=== PATIENT | female | born 1955 | race Caucasian/White ===

== ENCOUNTER 2023-01-17 10:14 | Outpatient (OUT) | payer MEDICARE, OTHER, SELFPAY ==
--- NOTE | 2023-01-17 10:20 | ECG_ITS ---
[facility] Test Date: 2023-01-17 Pat Name: Chelsea Johnson Department: Room: - Gender: Female Enterprise Resource Planning Consultant: : 1955 Requested By: JIMY JACKMAN Order Number: [id number] Reading MD: NUSRAT PAREKH Measurements Intervals [place] Rate: 76 P: 26 WY: 154 QRS: 4 QRSD: 94 T: 29 QT: 383 QTc: 431 Interpretive Statements SINUS RHYTHM MINIMAL VOLTAGE CRITERIA FOR LVH, CONSIDER NORMAL VARIANT [MEETS CRITERIA IN ONE OF: R(aVL), S(V1), R(V5), R(V5/V6)+S(V1)] POSSIBLE INFERIOR MYOCARDIAL INFARCTION [30 ms Q WAVE IN II/aVF], PROBABLY OLD No previous ECG available for comparison Electronically Signed On 01-18-2023 7:17:06 EDT by NUSRAT PAREKH
--- NOTE | 2023-01-17 11:32 | PM.PRESUREVA ---
History of Present Illness History of Present Illness Chief complaint: PAT visit Narrative: Patient presents for preadmission testing. The patient reports a long history of pain and callus to her 5th metatarsal left foot. She states the pain is worse after she has been walking long distances. She has had the callus removed several times which does help with her discomfort. She states she recently went on a vacation with a lot of walking, and she felt better when she stayed on even ground. She denies numbness, tingling, weakness, or any other complaints. Review of Systems ROS Narrative REVIEW OF SYSTEMS: Negative except as stated in HPI, ten or more systems reviewed. Constitutional: No fever , chills, weakness ENT: No sore throat or epistaxis Cardiovascular: No edema, chest pain, palpitations, or activity intolerance Respiratory: No shortness of breath, cough, or wheezing Musculoskeletal: No joint pain or swelling Gastrointestinal: No abdominal pain, constipation, diarrhea, or vomiting Genitourinary: No dysuria or hematuria Neurological: No numbness, tingling, weakness, or headache Psychiatric: No mood changes PFSH PFS Medical History (Updated 01/17/23 @ 11:24 by Cara Butts NP) (2010) Surgical History (Updated 01/17/23 @ 11:24 by Cara Butts NP) (11/27/18) Family History (Updated 01/17/23 @ 10:53 by Cara Butts NP) Other Atrial fibrillation Bladder cancer Family history of colon cancer Family history of kidney cancer Family history of lung cancer Family history of thyroid cancer Kidney disease Social History (Updated 01/17/23 @ 10:49 by Cara Butts NP) Within the past year, how often did you have a drink containing alcohol: 2-3 times a week Smoking status: Never smoker Non-prescribed substance use: denies use Previous occupational history: Retired Highest level of school completed/degree received: Bachelor's degree Meds Home Medications and Allergies Home Medications Medication Instructions Recorded Confirmed Type alprazolam 0.25 mg tablet 0.125 mg PO QDAY PRN anxiety 01/17/23 01/17/23 History amitriptyline 50 mg tablet 50 mg PO QDAY 01/17/23 01/17/23 History aspirin 81 mg tablet,delayed 81 mg PO DAILY 01/17/23 01/17/23 History release (Adult Aspirin Regimen) bupropion HCl 150 mg tablet,12 hr 150 mg PO QDAY 01/17/23 01/17/23 History sustained-release cholecalciferol (vitamin D3) 10 10 mcg PO DAILY 01/17/23 01/17/23 History mcg (400 unit) capsule coQ10 (ubiquinol) 200 mg capsule 200 mg PO DAILY 01/17/23 01/17/23 History (Active Q) esomeprazole magnesium 40 mg 40 mg PO Q24H 01/17/23 01/17/23 History capsule,delayed release ezetimibe 10 mg tablet 10 mg PO QDAY 01/17/23 01/17/23 History levothyroxine 100 mcg tablet 100 mcg PO QDAY 01/17/23 01/17/23 History lidocaine 5 % topical patch patch topical Q24H PRN pain 01/17/23 History plecanatide 3 mg tablet (Trulance) 3 mg PO QDAY 01/17/23 01/17/23 History rosuvastatin 5 mg tablet 10 mg PO .QOD 01/17/23 01/17/23 History Allergies Allergy/AdvReac Type Severity Reaction Status Date / Time acetaminophen [From Percocet] Allergy Hypotension Verified 01/17/23 10:38 gluten Allergy Abdominal Verified 01/17/23 10:38 Pain oxycodone [From Percocet] Allergy Hypotension Verified 01/17/23 10:38 Sulfa (Sulfonamide Allergy Rash Verified 01/17/23 10:38 Antibiotics) Exam Narrative Exam Narrative: Constitutional: Awake, alert, comfortable, well-appearing, nontoxic, interactive, vital signs as charted Head: Normocephalic, atraumatic Neck: Supple, normal appearance, normal range of motion, no meningeal signs, no lymphadenopathy Respiratory: No respiratory distress, breath sounds clear Cardiovascular: Regular rate and rhythm, strong and regular heart tones Musculoskeletal: Normal gait, no swelling or edema, Mild tenderness on the plantar aspect of the 5th metatarsal Skin: No rashes or induration, no lesions, only visible skin inspected Neuro: No neurological deficits, normal sensation Psychiatric: Oriented ?3, normal affect Assessment and Plan Assessment and Plan (1) Bunionette of left foot: (2) Other atrophic disorders of skin: Plan Partial resection of 5th metatarsal with fat pad allograft augmentation left foot scheduled with Dr. Mckay 01/23/2023.
== END 2023-01-17 10:15 ==
LOC: PST 10:19
PROVIDERS: PCP Family Medicine
DX: Z01.810 Encounter for preprocedural cardiovascular examination (principal); M21.622 Bunionette of left foot; L90.8 Other atrophic disorders of skin
CPT/HCPCS: 93005; G0463

== ENCOUNTER 2023-01-23 06:16 | Day surgery (SDC) | payer MEDICARE, OTHER, SELFPAY ==
[2023-01-17 10:51] VITALS: BP 154/94; BP 161/93; PULSE 81; RESP 16; TEMP 36.4; O2SAT 98; BMI 26.2
[2023-01-23] VITALS (9 sets, daily range): BP systolic 142–162; BP diastolic 66–96; PULSE 71–75; RESP 15–18; TEMP 36.1; O2SAT 92–98; BMI 25.9
[2023-01-23 06:38] LABS: Glucometer 108 mg/dL (74-106)
[2023-01-23] MEDS: LACTATED RINGER'S SOLUTION 1,000 ML 50 ML IV (07:32)
[2023-01-23] MEDS: CEFAZOLIN SODIUM/DEXTROSE,ISO 2 GM/50 ML PIGGYBACK IV (07:33)
--- NOTE | 2023-01-23 08:23 | XR_ITS ---
[address] [address] Patient Name: BREN KIRK MRN: [id number] date: 1955 Sex: F Assigned Patient Location: [facility] Current Patient Location: [facility] Accession/Order Number: [id number] Exam Date: 01/23/2023 09:00 Report Date: 01/23/2023 09:21 At the request of: YING MACK Procedure: XR foot LT min 3V PROCEDURE: XR foot LT min 3V HISTORY: post op COMPARISON: XR foot left 12/21/2022 FINDINGS: BONES:Single intraoperative spot fluoroscopic images of the toes of the left foot. Prior fusion of first metatarsophalangeal joint. Suspect fifth metatarsal bunionectomy. SOFT TISSUES:Expected intraoperative findings. IMPRESSION: 1. Findings as detailed above. Electronically authenticated by: RAYMUNDO LARIOS Date: 01/23/2023 09:21
[2023-01-23 08:47] LABS: Glucometer 100 mg/dL (74-106)
--- NOTE | 2023-01-23 08:55 | P.ORON_ITS ---
Brief Operative Note Date of procedure: 01/23/23 Pre-op diagnosis: left tailor's bunion, 5th metatarsal fracture (malunion), fat pad atrophy Post-op diagnosis: same Procedure: left tailor's bunionectomy and implantation of fat pad allograft procedure in detail: Patient was identified in pre op and consent was reviewed. Correct side and site were identified and marked. Pre-op antibiotics were started. Patient was brought to OR suite and place on table in a supine position. General anesthesia was administered. Tourniquet applied. Operative extremity was prepped and draped in usual sterile fashion. Formal time-out was performed and the foot/ankle were exsanguinated and tourniquet inflated. incision was placed on the dorsal lateral aspect of the 5th metatarsal phalangeal joint. Combination of sharp and blunt dissection gained access to the capsule of the 5th metatarsophalangeal joint which was opened and carefully reflected. All neurovascular structures as well as extensor tendon were protected throughout the procedure. After capsulotomy was performed attention was drawn to the lateral eminence of 5th metatarsal head which was resected with the sagittal saw and smoothed with a rasp. The rasp was also used to smooth the plantar surface which is slightly plantarflexed secondary to her malunion. Bone quality was within normal limits. Surgical site was irrigated copiously then the fat pad allograft was injected along the fascial planes along the plantar aspect of the 4th and 5th metatarsal heads. Incision was then closed in layers and a dry sterile dressing as well as a surgical shoe were applied. Patient tolerated the procedure and anesthesia well and was transferred to the recovery room with vital signs stable and brisk capillary refill time. Postoperative plan: Discharge home under family's care Post op instructions provided verbally and written prescription(s) were placed in chart weightbearing as tolerated in surgical shoe for 2-3 weeks or until sutures are removeed Follow-up in 2-3 weeks Implants: Benjiea 3cc fat pad allograft Anesthesia: CHAR Surgeon: Glen Mckay Private Investigator: Gabe Pham Estimated blood loss (mL): 10 Pathology: none sent Condition: stable Disposition: PACU
== END 2023-01-23 09:57 | disposition home or self-care (01) ==
PROVIDERS: PCP Family Medicine; Visit Provider Podiatrist Foot & Ankle Surgery
PROC: (CPT 11951; principal; 2023-01-23 07:30)
DX: M21.622 Bunionette of left foot (principal); L90.9 Atrophic disorder of skin, unspecified; Z79.82 Long term (current) use of aspirin; Z79.899 Other long term (current) drug therapy; Z96.642 Presence of left artificial hip joint; M20.22 Hallux rigidus, left foot; S92.352P Displaced fracture of fifth metatarsal bone, left foot, subsequent encounter for fracture with malunion
CPT/HCPCS: 11951; 28110; 36415; 64445; 73630; 76000; 76942; 82948; J2704; J3590

== ENCOUNTER 2023-03-07 11:12 | Outpatient (OUT) | payer MEDICARE, OTHER, SELFPAY ==
--- NOTE | 2023-03-07 11:22 | XR_ITS ---
The [address] [address] Patient Name: BREN KIRK MRN: [id number] date: 1955 Sex: F Assigned Patient Location: [facility] Current Patient Location: [facility] Accession/Order Number: [id number] Exam Date: 03/07/2023 11:22 Report Date: 03/07/2023 15:30 At the request of: MIKE CHANG Procedure: XR foot LT min 3V EXAM: XR foot LT min 3V HISTORY: Pain. COMPARISON: 01/23/2023 and a 12/21/2022 FINDINGS: There is no convincing evidence of an acute fracture, subluxation or bony destruction. There is remote, healed deformity of the fourth metatarsal. There are postsurgical changes involving the fifth metatarsal. There are advanced degenerative changes at the first metatarsophalangeal joint. There are small calcaneal heel spurs. XR/XR foot LT min 3V IMPRESSION: No acute osseous abnormality detected. Remote, postsurgical and degenerative changes. Electronically authenticated by: NEELAM BRUCE Date: 03/07/2023 15:30
== END 2023-03-07 11:13 | disposition home or self-care (01) ==
LOC: RAD 11:12
PROVIDERS: PCP Family Medicine; Visit Provider Physician Assistant
DX: M79.672 Pain in left foot (principal); Z98.890 Other specified postprocedural states; M19.072 Primary osteoarthritis, left ankle and foot; M77.32 Calcaneal spur, left foot
CPT/HCPCS: 73630

== ENCOUNTER 2023-11-07 11:21 | Outpatient (OUT) | payer MEDICARE, OTHER, SELFPAY ==
--- NOTE | 2023-11-07 | XR_ITS ---
[address] [address] Patient Name: BREN KIRK MRN: [id number] date: 1955 Sex: F Assigned Patient Location: Current Patient Location: Accession/Order Number: [id number] Exam Date: 11/07/2023 11:22 Report Date: 11/07/2023 13:28 At the request of: JIMY JACKMAN Procedure: XR foot LT min 3V PROCEDURE: XR ankle LT min 3V, XR foot LT min 3V COMPARISON: 11/02/2023 HISTORY: LEFT ANKLE PAIN FINDINGS: BONES:No acute fracture or dislocation. Remote shave osteotomy lateral head of the fifth metatarsal. Remote fusion first metatarsal-phalangeal joint and second proximal interphalangeal joint. Remote healed fracture diaphysis of the fourth metatarsal. Moderate degenerative changes with joint space narrowing and marginal osteophyte formation. Plantar rotation of the navicular in relation to the distal tarsal bones. Moderate enthesopathic spurring plantar calcaneus SOFT TISSUES:Negative. No visible soft tissue swelling. EFFUSION:None visible. OTHER: Negative. XR/XR foot LT min 3V IMPRESSION: Degenerative and postsurgical changes No acute abnormality of the ankle or foot Electronically authenticated by: ZBIGNIEW ROMERO Date: 11/07/2023 13:28
--- NOTE | 2023-11-07 | XR_ITS ---
[address] [address] Patient Name: BREN KIRK MRN: [id number] date: 1955 Sex: F Assigned Patient Location: Current Patient Location: Accession/Order Number: [id number] Exam Date: 11/07/2023 11:22 Report Date: 11/07/2023 13:28 At the request of: JIMY JACKMAN Procedure: XR ankle LT min 3V PROCEDURE: XR ankle LT min 3V, XR foot LT min 3V COMPARISON: 11/02/2023 HISTORY: LEFT ANKLE PAIN FINDINGS: BONES:No acute fracture or dislocation. Remote shave osteotomy lateral head of the fifth metatarsal. Remote fusion first metatarsal-phalangeal joint and second proximal interphalangeal joint. Remote healed fracture diaphysis of the fourth metatarsal. Moderate degenerative changes with joint space narrowing and marginal osteophyte formation. Plantar rotation of the navicular in relation to the distal tarsal bones. Moderate enthesopathic spurring plantar calcaneus SOFT TISSUES:Negative. No visible soft tissue swelling. EFFUSION:None visible. OTHER: Negative. XR/XR ankle LT min 3V IMPRESSION: Degenerative and postsurgical changes No acute abnormality of the ankle or foot Electronically authenticated by: ZBIGNIEW ROMERO Date: 11/07/2023 13:28
== END 2023-11-07 11:22 | disposition home or self-care (01) ==
LOC: EC 11:22
PROVIDERS: PCP Family Medicine; Visit Provider Podiatrist Foot & Ankle Surgery
DX: M21.622 Bunionette of left foot (principal); M25.572 Pain in left ankle and joints of left foot
CPT/HCPCS: 73610; 73630

== ENCOUNTER 2024-02-27 13:43 | Outpatient (OUT) | payer MEDICARE, OTHER, SELFPAY ==
--- NOTE | 2024-02-27 | XR_ITS ---
[address] [address] Patient Name: BREN KIRK MRN: [id number] date: 1955 Sex: F Assigned Patient Location: Current Patient Location: Accession/Order Number: [id number] Exam Date: 02/27/2024 13:45 Report Date: 02/29/2024 04:18 At the request of: JIMY JACKMAN Procedure: XR foot RT min 3V PROCEDURE: XR foot RT min 3V HISTORY: RIGHT FOOT PAIN ; 5th toe injury COMPARISON: XR foot right 08/02/2010 FINDINGS: BONES:Nondisplaced corner fracture involving the proximal medial margin of the third proximal phalanx. Remote posttraumatic changes of the head of the third metatarsal. Prior osteotomy of the head of the second proximal phalanx and suspected osseous fusion of the joint. Remote osteotomy and repair of first metatarsal. Large calcaneal plantar spur. SOFT TISSUES:No visible soft tissue swelling. EFFUSION:None visible. OTHER: Negative. XR/XR foot RT min 3V IMPRESSION: 1. Acute mildly displaced proximal corner fracture of the third proximal phalanx. 2. Additional chronic changes. 3. Unremarkable 5th toe. Electronically authenticated by: RAYMUNDO LARIOS Date: 02/29/2024 04:18
== END 2024-02-27 13:44 | disposition home or self-care (01) ==
LOC: EC 13:43
PROVIDERS: PCP Family Medicine; Visit Provider Podiatrist Foot & Ankle Surgery
DX: M79.671 Pain in right foot (principal); S92.511A Displaced fracture of proximal phalanx of right lesser toe(s), initial encounter for closed fracture
CPT/HCPCS: 73630